=== PATIENT | male | born 1970 | race Caucasian/White ===

== ENCOUNTER 2016-07-06 06:31 | Observation (INO) | payer OTHER ==
--- NOTE | ~2016-07-06 | HP ---
Unit #: [id number] #: [id number] Patient: ALYSHA CHUNG [id number] [address] [place], [place] [address] [id number] I MR#: [id number] NAME: ALYSHA CHUNG ROOM: 69401 Age: 46 Sex: M Admission Date: 07/06/2016 : 1970 Attending Physician: Calvin Faust M.D. Primary Care Physician: No Primary Care Physician HISTORY AND PHYSICAL HISTORY OF PRESENT ILLNESS This is a 46-year-old white male with a known history of diabetes mellitus type 2, hyperlipidemia, hypertension, known coronary artery disease, had a heart catheterization back in [address] Faust that showed a 70% to 75% stenosis of the ostial LAD, a 99% stenosis in the first diagonal of the circumflex, and 75% in the proximal and the mid RCA. At that time, the recommendation by Dr. Faust was to go see a cardiothoracic surgeon for possible bypass and/or treat medically and, if he didn't have any chest pain, would hold off on any angioplasty or bypass. The patient has not seen a district manager postal service or a surgeon since that time. 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 The patient had a bronchoscopy by Dr. Johnson. It was not thought that there was any malignancy. He was on INH for six months. The patient says he ran out of all of his medications about two months ago including his diabetic medications. He says about the last three to four days has been having persistent frontal headache that radiates down to his face including the jaws and the neck. He started this morning. He has some sharp, pushing pressure on his right anterior chest wall. He says the chest pain is worse with taking in a deep breath. He denies any nausea, vomiting or diarrhea. He denies any increased shortness of breath, no palpitations, dizziness, presyncope or syncope. Denies any paroxysmal nocturnal dyspnea or orthopnea. The patient came into the hospital for further evaluation and management. In the emergency room, blood pressure was 150/81, heart rate was 73, respirations 16, temperature was 98.2, O2 sat was 100% on room air. His EKG shows sinus rhythm, early repolarization, nothing acute. His initial cardiac enzymes were negative. The patient's blood glucose was found to be 363. His creatinine is 1.0. The patient's WBCs are 12.6, his hemoglobin 16.3, platelets are 210. The patient was given aspirin 325. The patient will be admitted for further evaluation and workup. PAST MEDICAL HISTORY 1. Cardiac cath done here at [facility] by Dr. Faust 09/2011, revealed LVEF of 60%, 70% to 75% ostial LAD stenosis, 99% stenosis in the first diagonal of the circumflex, 75% stenosis in the proximal RCA, and 75% in the mid RCA. 2. Diabetes mellitus type 2. 3. Hyperlipidemia. 4. Diagnosed with possible TB 07/2015, was on INH therapy for six months. 5. Peripheral neuropathy. 6. Quit smoking two years ago. Unit #: [id number] #: [id number] Patient: ALYSHA CHUNG 7. Non-compliancy with medications. PAST SURGICAL HISTORY None. HOME MEDICATIONS Currently not taking anything. He ran out about two months ago. Looking back on previous medications from last year, the patient was on: 1. Coreg 3.125 mg p.o. twice daily. 2. Aspirin 81 mg p.o. daily. 3. Levemir 25 units subcu in the evening. 4. He also states he has been taking metformin but has been out of that for two months. ALLERGIES Codeine causes a rash. REVIEW OF SYSTEMS CONSTITUTIONAL: Denies fever, chills. No recent weight gain or weight loss. HEENT: Complains of a headache. No dizziness, no visual or hearing changes. No lymphadenopathy or thyromegaly. No difficulty swallowing. CARDIOVASCULAR: Chest pain present. Denies palpitations. Denies increased lower extremity edema. PULMONARY: Denies shortness of breath, denies paroxysmal nocturnal dyspnea or orthopnea. GI: Denies nausea, vomiting or diarrhea or abdominal pain. NEUROLOGICAL: No focal weakness. PHYSICAL EXAMINATION GENERAL: On exam, Mr. Chung is a 46-year-old white male in no acute respiratory distress. He is awake, alert and oriented. VITAL SIGNS: Blood pressure is 132/87, heart rate 72, respirations 16, temperature 98.6, O2 sats 96% on room air. NECK: Trachea midline. No thyromegaly or lymphadenopathy. Normal carotid upstrokes. No jugular venous distention. HEART: S1, S2. Regular rate and rhythm. No clicks, murmurs or rubs. LUNGS: Diminished, otherwise clear. ABDOMEN: Soft, nontender. Positive bowel sounds present. EXTREMITIES: Pedal pulses are palpable. No pedal edema. DIAGNOSTIC STUDIES LABORATORY: Glucose is 363, BUN 15, creatinine 1.0, eGFR is 91.1, potassium 4.6, sodium 134, chloride is 99, CO2 27, calcium is 8.9, total protein 7.0, albumin 3.9, bili total 0.7, AST 13, ALT 18, alkaline phos. 65. INR is 1.0, WBC 12.6, hemoglobin is 16.3 with hematocrit 49.0 and platelets 210. IMAGING: Chest x-ray shows nothing acute. CARDIOVASCULAR: EKG shows normal sinus rhythm, early repolarization. Ventricular rate 73 beats/minute, poor R wave progression. Left atrial abnormality. IMPRESSION 1. Chest pain, history of coronary artery disease: See details of heart catheterization in Past Medical History. 2. Poorly controlled diabetes mellitus type 2. Unit #: [id number] #: [id number] Patient: ALYSHA CHUNG 3. Hyperlipidemia. 4. Hyperlipidemia. 5. Peripheral neuropathy. 6. Non-compliancy with medications. PLAN 1. Cardiac enzymes so far are negative. EKG does not show anything acute. With patient's poorly controlled diabetes mellitus and his symptoms, Dr. Faust feels that since he has known coronary artery disease, moderate to severe. Was pretty significant back in 2011 that he needs further ischemic heart disease workup by performing a heart catheterization. Discussed with patient risks and benefits including risk of bleeding, myocardial infarction, stroke and even . 2. Will obtain a fasting profile to evaluate. 3. The patient will be started on normal saline at 125 mL/hour before the cath. 4. The patient will receive Lipitor 80 mg p.o. stat. 5. The patient will be, after his heart catheterization, started on a beta althea in addition to aspirin for regimen. 6. Dr. Faust had a long discussion with the patient about compliancy with his medication and his description of progression of diseases of his coronary artery disease and his diabetes mellitus as they are poorly controlled. 7. Will have Dr. James to come and manage his poorly controlled diabetes mellitus. Will order a hemoglobin A1c. 8. On exam, there are no signs or symptoms of acute congestive heart failure. 9. Will get an LVEF on the heart catheterization today. 10. Further recommendations pending with Dr. Faust. Dictated by Xi Dennis A.P.R.N. for Noemy Ellis/ike TD: 07/06/2016 11:25 JOB #: [id number] HISTORY AND PHYSICAL Page 1 of 1 X Xi Dennis APRN HISTORY AND PHYSICAL
--- NOTE | ~2016-07-06 | CO ---
Unit #: [id number] #: [id number] Patient: ALYSHA JONES [id number] [address] [address] [id number] I MR#: [id number] NAME: ALYSHA JONES ROOM: 573 Age: 46 Sex: M Admission Date: 07/06/2016 : 1970 Attending Physician: Calvin Faust M.D. Consultation Date: 07/06/2016 CONSULTATION REPORT HISTORY OF PRESENT ILLNESS This is a 46-year-old male with history of type 2 diabetes mellitus, coronary artery disease, hypertension, hyperlipidemia, poor compliance, who has been admitted with chest pain. He had status post cardiac cath done today with Dr. Faust. On his admission, he had a blood sugars running very high was 363. He last was in the hospital in 2011 and his A1c was about 12%. On this visit, his A1c is not available. Note, the patient has not been taking any of his medications. PAST MEDICAL HISTORY Please see HPI. PAST SURGICAL HISTORY None. HOME MEDICATIONS Not taking any at home, supposed to be on Coreg, aspirin, Levemir 25 units in the evening, supposed to be taking metformin, but he stopped everything. ALLERGIES Codeine. REVIEW OF SYSTEMS 12-point review of system is completed. Declines any nausea, vomiting, abdominal pain, urgency, frequency, dysuria. No polyuria. No cough, sputum, or shortness of air. Does report to have some headache and neck pain and chest discomfort. No focal deficits. Rest of the review of system is unremarkable. PHYSICAL EXAMINATION GENERAL: He is awake, alert, oriented to time, place, and person. VITAL SIGNS: Stable. Afebrile. Temperature 98.9, pulse 69, respirations 14, blood pressure 107/62. HEENT: EOMI. Pupils equally reactive to light. NECK: Supple. No thyromegaly noted. CHEST: Good air entry. CVS: Regular rhythm. No murmurs. ABDOMEN: Soft and nontender. Bowel sounds positive. EXTREMITIES: No edema or ulcers are noted. DIAGNOSTIC STUDIES LABORATORY RESULTS: Reviewed. ASSESSMENT Unit #: [id number] #: [id number] Patient: ALYSHA JONES 1. Type 2 diabetes mellitus, poorly controlled. 2. Coronary artery disease, status post cath. 3. Hyperlipidemia. PLAN I had a very lengthy discussion with the patient about need for compliance with medicine and the diet. I am going to start the patient on 70/30 NovoLog mix 25 units subcu b.i.d. and start metformin 750 mg b.i.d. or 48 to 72 hours later since the patient had a cardiac cath done. Discussed with the patient's complication of diabetes mellitus and cardiovascular including diabetic retinopathy, blindness, amputations, and renal failure. Thanks again for consultation. Dictated by... Noemy Malcolm/alfredo TD: 07/07/2016 02:38 JOB #: [id number] CONSULTATION REPORT Page 1 of 1 X Chapin James MD X CONSULTATION REPORT
--- NOTE | ~2016-07-06 | CR72 ---
[facility] A Service of [facility] RADIOLOGY TEXT RESULTS PATIENT: ALYSHA JONES [facility] 573-01 : [birth year] UNIT #: [id number] AGE: [address]: Calvin Faust MD SEX: M ORDER DR: [id number] [facility] [address] [place], [place] [address] [id number] MR#: [id number] Acc #: [id number] NAME: ALYSHA JONES : 1970 SEX: M STUDY DATE/TIME: 07/06/2016 7:23 UNIT: [facility]ONOR[facility] ROOM: STUDY DESCRIPTION: CR Chest Single View Portable Attending Physician: Alin Morales M.D. Ordering Physician: Alin Morales M.D. Primary Care Physician: No Primary Care Physician MEDICAL IMAGING REPORT This report is preliminary unless electronic signature is present EXAM Portable chest 07/06/2016 0723 COMPARISON 04/16/2015 HISTORY Chest pain since this morning. FINDINGS A single AP portable view of the chest shows both lungs to be clear. The heart is normal in size. The mediastinal contour is normal. No significant bone abnormalities are seen. IMPRESSION Normal portable chest. Dictated by... Gary Rapp M.D. THIS IS AN ELECTRONICALLY VERIFIED REPORT Gary Rapp M.D. at 07/06/2016 1:47 PM TEV/tye TD: 07/06/2016 08:04 JOB #: [id number] MEDICAL IMAGING REPORT Page 1 of 1 COPY
--- NOTE | ~2016-07-06 | EKG ---
PATIENT: ALYSHA JONES UNIT #: [id number] Ventricular Rate: 73 BPM Atrial Rate: 73 BPM P-R Interval: 144 ms QRS Duration: 106 ms Q-T Interval: 376 ms QTC Calculation(Bezet): 414 ms P [place]: 71 degrees Calculated R [place]: 67 degrees Calculated T [place]: 52 degrees Diagnosis Line: Normal sinus rhythm Diagnosis Line: Early repolarization Diagnosis Line: Normal ECG Diagnosis Line: When compared with ECG of 26-SEP-2011 10:28, Diagnosis Line: No significant change was found Diagnosis Line: Confirmed by TALISHA BOURNE MD ([id number]) on 07/06/2016 Diagnosis Line: 6:07:43 PM INTERPRETING MD: TAYLA DELGADILLO
[~2016-07-06 06:31] MED LIST: ALBUTEROL17 GM IN; ASPIRIN81 M1 PO; BACTROBAN22 GM TP; BENZONATATE PO; CLEOCIN HCL300 M1 PO; CLEOCIN150 M1 PO; COREG3.125 MG PO; COREG6.25 MG PO; CRESTOR PO; FLORASTOR250 M1 PO; GLUCOPHAGE500 M1 PO; GLUCOPHAGE500 MG PO; HUMALOG MI100 UNIT/2 SQ; IBUPROFEN800 MG PO; ISONIAZID300 MG PO; KEFLEX500 MG PO; LEVAQUIN750 M1 PO; LEVAQUIN750 MG PO; LEVEMIR100 UNITS/ SUBQ; LISINOPRIL5 MG PO; METFORMIN; METFORMIN HCL500 M1 PO; METFORMIN PO; NITROSTAT0.4 MG SL; NO MEDICATIONS; PEN-VEE K PO; PEPCID AC20 M2 PO; PLAVIX PO; PREDNISONE10 MG PO; PYRIDOXINE HCL50 M1 PO; TYLENOL325 M1 PO
[2016-07-06 07:55] LABS: POC - CKMB <1.0 ng/mL (0.0-7.9); POC - TROPONIN <0.05 ng/mL (<=0.05)
[2016-07-06 08:24] LABS: BASOPHIL# 0.1 X10e3 (0-0.3); BASOPHIL% 0.5 % (0-2.5); EOSINOPHIL# 0.2 X10e3 (0-0.7); HEMOGLOBIN 16.3 gm/dL (13.0-16.0); LYMPHOCYTE# 1.9 X10e3 (1.0-3.5); LYMPHOCYTE% 15.3 % (17.0-45.0); MEAN CELL VOLUME 85.7 FL (83-96); MEAN CORPUSCULAR HEMOGLOBIN 28.5 PG (28-34); MEAN CORPUSCULAR HGB CONC 33.2 g/dL (30-36); MEAN PLATELET VOLUME 10.1 FL (6.5-11.5); MONOCYTE# 1.2 X10e3 (0-1.0); MONOCYTE% 9.5 % (3.0-12.0); NEUTROPHIL# 9.2 X10e3 (1.5-7.1); NEUTROPHIL% 72.7 % (40-75); PLATELET COUNT 210 X10e3 (140-420); RED BLOOD COUNT 5.72 X10e (3.90-5.60); RED CELL DISTRIBUTION WIDTH 13.3 % (11.0-15.5); WHITE BLOOD COUNT 12.6 X10e3 (4.0-10.5)
[2016-07-06 08:30] LABS: DIFF IND NO
[2016-07-06 08:38] LABS: PARTIAL THROMBOPLASTIN TIME 26.7 SECONDS (23.5-31.3); PROTHROMBIN TIME (PATIENT) 10.1 SECONDS (9.6-11.5)
[2016-07-06 08:55] LABS: ALBUMIN SERUM 3.9 g/dL (3.5-5.0); BILIRUBIN, DIRECT 0.1 mg/dL (0.0-0.2); BILIRUBIN,INDIRECT 0.6 mg/dL (0.0-0.9); BILIRUBIN,TOTAL 0.7 mg/dL (0.2-2.0); CALCIUM SERUM 8.9 mg/dL (8.4-10.2); GLOM FILT RATE Estimated 91.1 mL/min (>60); POTASSIUM 4.6 mmol/L (3.5-5.1)
[2016-07-06 10:16] LABS: POC - CKMB <1.0 ng/mL (0.0-7.9); POC - TROPONIN <0.05 ng/mL (<=0.05)
[2016-07-06] MEDS ORDERED: NO MEDICATIONS (11:00)
[2016-07-06 14:06] LABS: CHOLESTEROL 141 mg/dL (0-200); HDL CHOLESTEROL 41 mg/dL (29-75); LDL CHOLESTEROL 85 mg/dL (-130); LDL/HDL RATIO 2 RATIO (0-4); TRIGLYCERIDES 77 mg/dL (10-160)
[2016-07-06] MEDS ORDERED: BAYER CHEWABLE81 MG PO (20:08)
[2016-07-06] MEDS ORDERED: LISINOPRIL10 MG PO (20:10)
[2016-07-06] MEDS ORDERED: SIMVASTATIN40 MG PO (20:11)
[2016-07-06] MEDS ORDERED: METFORMIN HCL750 MG PO (20:12)
[2016-07-06] MEDS ORDERED: NOVOLOG7030 SUBQ (20:16)
== END 2016-07-06 20:54 | disposition home or self-care (01) | DRG 303 ==
LOC: CED 06:31 → CEDOF 09:54 → C5C 12:29 → CEDOF 12:29 → C5C 20:54
PROVIDERS: Emergency Medicine; Internal Medicine Cardiovascular Disease
DX: I25.118 Atherosclerotic heart disease of native coronary artery with other forms of angina pectoris (principal); E11.65 Type 2 diabetes mellitus with hyperglycemia; E11.42 Type 2 diabetes mellitus with diabetic polyneuropathy; Z79.4 Long term (current) use of insulin; Z79.84 Long term (current) use of oral hypoglycemic drugs; I10 Essential (primary) hypertension; E78.5 Hyperlipidemia, unspecified; Z87.891 Personal history of nicotine dependence; Z91.14 Patient's other noncompliance with medication regimen; Z88.5 Allergy status to narcotic agent
CPT/HCPCS: 36415; 71010; 80048; 80061; 80076; 82553; 82947; 83036; 84443; 84484; 85025; 85610; 85730; 93005; 99285; C1769; C1887; C1894; G0378; J1644; J2250; J3010

== ENCOUNTER 2016-09-07 11:13 | Inpatient (IN) | payer OTHER ==
[~2016-09-07] VITALS: Ht 190.5 cm; Wt 100.6 kg
--- NOTE | ~2016-09-07 | DS ---
Unit #: [id number] #: [id number] Patient: ALYSHA CHUNG JR [id number] [address] [address] [id number] I MR#: [id number] NAME: ALYSHA CHUNG JR ROOM: 242 Age: 46 Sex: M Admission Date: 09/07/2016 : 1970 Discharge Date: 09/13/2016 Attending Physician: Laurel Acevedo M.D. Primary Care Physician: No Primary Care Physician DISCHARGE SUMMARY PRINCIPAL DIAGNOSES 1. Right lower lobe pulmonary abscess. 2. Right flank pain musculoskeletal in origin. 3. Diabetes mellitus type 2, non-insulin requiring and uncontrolled with hemoglobin A1c of 13.1 in June of 2016. 4. Coronary artery disease. 5. Hypertension. 6. Hyperlipidemia. 7. Mild protein malnutrition. 8. Mild transaminitis. 9. Positive QuantiFERON of undetermined significance. 10. Obesity. 11. Poor dentition. CONSULTANTS Dr. Johnson, Pulmonology. Dr. Candelario, Cardiothoracic Surgery. Dr. Nichols, Infectious Disease. PROCEDURES 1. Bronchoscopy on September 12, 2016, without findings of endobronchial lesion. Initial gram stains are negative for organisms. 2. Chest x-ray September 07, 2016, with ill-defined density in the right infrahilar region. 3. CT scan of the abdomen and pelvis without contrast September 07, 2016, with no acute findings in the abdomen or pelvis. There is a thick-walled cavitary lesion in the right lower lobe measuring 6.2 x 4.2 cm. Left lung is clear. 4. CT of the chest without contrast in September 07, 2016, again with findings of right lower lobe cavitary mass. Small right pleural effusion. 5. CT of the chest with contrast September 10, 2016, with normal superior vena cava, thick-walled cavitary lesion in the posterior right lung base is slightly smaller compared to CT scan on September 07. 6. Chest x-ray, September 12, 2016, again with cavitary lesion in the right lower lobe. CLINICAL HISTORY AND HOSPITAL COURSE Mr. Chung is a 46-year-old male who presents to the emergency department with complaints of abdominal pain and cough. The patient has a history of right lower lobe cavitary mass diagnosed in July of 2016 with concerns of TB at that time secondary to a positive QuantiFERON test. Patient was discharged on INH, vitamin B6 but only took the medications for one month. He returns with abdominal pain that appeared primarily Unit #: [id number] #: [id number] Patient: ALYSHA CHUNG JR based on history and examination. CT scan of the abdomen and pelvis is unremarkable. The same CT scan revealed persistent cavitary mass and the patient was admitted. The patient was placed on empiric broad-spectrum antibiotics and Pulmonology, Cardiothoracic Surgery and ID were consulted. Antibiotics were adjusted by ID, essentially to Zosyn and Zyvox and based upon repeat CT scan, the cavitary mass appeared to be improving. The patient underwent bronchoscopy yesterday but initial Gram stains are negative. Patient did have a mild leukocytosis upon presentation but this resolved by the second day of hospitalization and has not recurred. No associated fever. At this point, causative organism is unclear. We are going to complete a 28-day course of antibiotics as outlined below, and the patient will require close follow up. The patient also has significantly uncontrolled diabetes. When he was discharged from this facility in June, he was placed on some sort of insulin therapy which was too expensive. Unfortunately, I do not have a record of which insulin was prescribed. I am going to check costs of insulins downstairs, i.e., Levemir, NovoLog and if too expensive will change him to NPH. Anticipate discharge home later today. DISCHARGE CONDITION Stable. DISCHARGE STATUS Discharged to home. DISCHARGE MEDICATIONS Will be dictated as an addendum. DISCHARGE INSTRUCTIONS The patient has been instructed regarding a diabetic diet. He can obtain Accu-Cheks at least twice daily at home, once fasting and one meal 2 hours post-prandial to monitor insulin dosing. He can increase activity as tolerated. FOLLOW UP The patient will follow up with Dr. Johnson per his instructions, will need repeat CT scan done as an outpatient to ensure improvement in pulmonary abscess. He needs CBC and BMP every other week while on antibiotics. The patient is to follow-up with his primary care physician Dr. Foy in 2 weeks. Time spent on discharge today 36 minutes. Dictated by... Laurel Acevedo M.D. HA/pawan TD: 09/13/2016 19:40 JOB #: [id number] Unit #: [id number] #: [id number] Patient: ALYSHA CHUNG JR DISCHARGE SUMMARY Page 1 of 1 X Laurel Acevedo MD X DISCHARGE SUMMARY
--- NOTE | ~2016-09-07 | HP ---
Unit #: [id number] #: [id number] Patient: ALYSHA CHUNG [id number] [address] [address] [id number] MR#: [id number] NAME: ALYSHA CHUNG ROOM: Age: 46 Sex: M Admission Date: 09/07/2016 : 1970 Attending Physician: Angeles Jacobs M.D. HISTORY AND PHYSICAL PRIMARY CARE PROVIDER Dr. Foy CHIEF COMPLAINT Right flank pain. HISTORY OF PRESENT ILLNESS Mr. Chung is a 46-year-old male with a questionable history of TB with known right lower lobe pulmonary abscess diagnosed in July 2015. The patient presented to this emergency department with a four-day history of right flank and abdominal pain described as sharp and stabbing more so with coughing or movement. He does endorse a mild amount of constipation but no melena, no hematochezia, no nausea or vomiting, no difficulty eating, no chest pain, no hematuria, no dysuria, and no change in urinary frequency. He states that he had similar pain when he was diagnosed with pulmonary abscess in 2016. He states he has had a cough for the last four days but denies any fever, denies any malaise, and denies any recent weight loss or night sweats. He denies any sick contacts. Cough is intermittently productive but generally not so. In the emergency department upon presentation, patient's vital signs were all stable and he was afebrile. Oxygen saturation was 99% on room air. Lab work revealed an elevated white blood cell count of 15,000 in addition to a significantly elevated glucose of 481. A CT scan of the abdomen and pelvis was done revealing a persistent right lower lobe cavitary pneumonia but not significantly increased in size since July 2015. Patient is being admitted due to this persistent abscess. I will note, per record review, patient was instructed to take INH 300 mg daily for six months, in addition to vitamin B6 daily. Patient tells me he completed treatment, but he cannot tell me when. He does inform me that he filled the INH at [facility]. I contacted the patient's pharmacy today and am told that he has not filled any medication since July 2015. It appears there might have been attempt to fill in October 2015, but it was never picked up. PAST MEDICAL HISTORY 1. 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 Again, patient was to complete six months of INH and vitamin B6, but it is unclear whether this was done or not. 2. Coronary artery disease. Patient underwent heart cath in June 2016 here with what appears to be a RCA lesion of 75%, an LAD lesion of perhaps 75%, and a circumflex lesion of 50%. However, this is per patient report, and I cannot identify the cath report itself. The plan was medical management. Unit #: [id number] #: [id number] Patient: ALYSHA HCUNG JR 3. Diabetes mellitus type 2, uncontrolled. Patient's hemoglobin A1c in June 2016 was 13.1. 4. Hypertension. 5. Hyperlipidemia. 6. Diabetic peripheral neuropathy. 7. History of medical noncompliance. PAST SURGICAL HISTORY Recent heart cath (1) is otherwise negative. HOME MEDICATIONS 1. Metformin 750 mg b.i.d. 2. Zestril 10 mg daily. 3. Zocor 40 mg daily. Again, completion of INH is unclear to me at this time. ALLERGIES Codeine causes a rash. FAMILY HISTORY Diabetes, hypertension, and coronary artery disease. SOCIAL HISTORY Patient does have a 10 pack-year history of tobacco use but quit five years ago. He drinks alcohol only socially. He denies any illicit drug use. 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 REVIEW OF SYSTEMS Again, denies any fevers or chills, denies any vision change, denies any sore throat, denies any weight change or any night sweats. He denies any upper chest pain, palpitations, orthopnea, or PND. He does endorse cough that is occasionally productive and this right-sided abdominal pain. No new tingling, numbness, or weakness of extremities. He does intermittently have joint pain diffusely. He denies any recent rashes. Otherwise, a 10-point review of systems was reviewed and is negative. PHYSICAL EXAMINATION VITAL SIGNS: Temperature 98.6, blood pressure 125/79, pulse rate 68, respiratory rate 16, and oxygen saturation is 100% on room air. GENERAL: Patient is awake and alert. He is oriented x3. HEENT: Pupils equally round and reactive to light bilaterally. Anicteric sclerae. No conjunctival pallor. Oropharynx with moist mucous membranes. No erythema or exudate. NECK: Supple. No lymphadenopathy, no thyromegaly, and no JVD. HEART: Regular rate and rhythm without murmur, rub, or gallop. LUNGS: Essentially clear bilaterally with occasional rhonchi in the right lower lobe. ABDOMEN: Soft. It is nondistended. It is mildly tender primarily over the right flank but without any guarding or rebound. Positive bowel sounds. No appreciable hepatosplenomegaly. EXTREMITIES: No cyanosis, clubbing, or edema. Pedal pulses 2/4. SKIN: Warm and moist without rash. NEUROLOGIC: Cranial nerves II-XII are intact. Sensation, strength, and deep tendon reflexes are grossly normal. Gait was not assessed. MUSCULOSKELETAL: No significant joint abnormalities noted on exam. PSYCHIATRIC: Alert and oriented x3. No suicidal or homicidal ideation. I will admit, he is somewhat vague with history. Unit #: [id number] #: [id number] Patient: ALYSHA CHUNG JR DIAGNOSTIC STUDIES LABORATORY: White blood cell count of 15, hemoglobin 15.4, and platelet count of 193,000. Differential reveals 78% neutrophils and 13% lymphocytes. Urinalysis reveals greater than 1000 glucose but is otherwise negative. CMP reveals a sodium of 131, potassium 4.1, chloride 97, bicarb 26, BUN 16, creatinine 1, and glucose of 481. LFTs are all normal. Albumin is mildly low at 3.5. Lipase is also normal. BNP is 74. IMAGING: Chest x-ray done in the emergency department good inflation of the lungs. There is an ill-defined density in the right infrahilar region noted. CT scan of the abdomen and pelvis without contrast done in the emergency department reveals a thick-walled cavitary lesion measuring 6.2 x 4.2 cm noted. There is posterior pleural fluid or reactive pleural thickening associated with this. It appears similar in size to studies from July 2015. Terminal ileum and appendix were normal. Otherwise, there were no acute findings in the abdomen or pelvis. I will note, record review from last year after patient underwent bronc was negative for malignancy, AFB, and fungal infection at that time. ASSESSMENT 1. Persistent right lower lobe pulmonary abscess with questionable completion of INH therapy and positive QuantiFERON Gold testing in July 2015. 2. Right flank pain that is likely muscular in origin. 3. Diabetes mellitus type 2, uncontrolled, with associated peripheral neuropathy. Hemoglobin A1c 13.1. 4. Coronary artery disease, status post recent catheterization with medical management. 5. Hypertension. 6. Hyperlipidemia. PLAN 1. I will admit patient to inpatient status. 2. Source of patient's pulmonary abscess is unclear. While indeed this is very possibly TB, perhaps there is another etiology such as an anaerobe or a fungal infection. I am going to begin empiric Merrem only, and I will ask Dr. Fonseca to see the patient. I am also going to ask Dr. Johnson who evaluated the patient last year to see him again, and I am also going to ask Dr. Candelario to evaluate the patient given this pulmonary abscess may require surgical intervention, though that is unclear to me at this time. Will obtain sputum gram stain and cultures, repeat a serum QuantiFERON, and obtain blood cultures as well. I will also get a CT scan of the chest for further imaging of this pulmonary abscess. I will also place the patient in a negative pressure room pending results of testing. 3. Pain control of right flank pain with Toradol and morphine on a p.r.n. basis. I will also place the patient on Protonix. 4. Obtain copy of most recent 2D echo and heart cath report from June 2016. 5. I am going to ask patient's pharmacy to fax a list of all meds that have been filled since February 2015 to ensure that indeed this medication has or has not been filled. 6. Accu-Cheks a.c. and at bedtime with associated CCD, heart-healthy diet. I am going to place the patient on scheduled NovoLog and Levemir. His blood sugar is much too uncontrolled to be on metformin only. Unit #: [id number] #: [id number] Patient: ALYSHA CHUNG JR 7. Continue home medications for hypertension and hyperlipidemia. 8. DVT prophylaxis with Lovenox. Time spent on admission today 55 minutes. Dictated by Laurel Acevedo M.D. Rhonda TD: 09/07/2016 20:59 JOB #: [id number] HISTORY AND PHYSICAL Page 1 of 1 X Laurel Acevedo MD X HISTORY AND PHYSICAL
--- NOTE | ~2016-09-07 | CT55 ---
[facility] A Service of [facility] RADIOLOGY TEXT RESULTS PATIENT: ALYSHA JONES JR LOCATION: [facility] 315-01 : [birth year] UNIT #: [id number] AGE: [address]: Laurel Acevedo MD SEX: M ORDER DR: [id number] [facility] [address] [facility]. [place], [place] [address] [id number] I MR#: [id number] Acc #: [id number] NAME: ALYSHA JONES JR : 1970 SEX: M STUDY DATE/TIME: 09/10/2016 15:48 UNIT: C3A PCU ROOM: [facility] STUDY DESCRIPTION: CT Chest W Con Attending Physician: Laurel Acevedo M.D. Ordering Physician: Ed Doctor [id number] [facility] Primary Care Physician: Primary Care Physician No MEDICAL IMAGING REPORT This report is preliminary unless electronic signature is present EXAM CT chest without contrast, 09/10/2016 15:48 hours HISTORY 46-year-old man with pulmonary abscess, new onset angioedema of the face. Evaluate for SVC syndrome. Shortness of air for 5 days. COMPARISON Noncontrasted chest CT, 09/07/[address] images were obtained from the thoracic inlet through the adrenal glands. Sagittal and coronal reconstructions were performed. Contrast was Isovue-370, 70 mL IV. Total exam DLP 71 7 mGy-cm. This CT exam was performed with one or more of the following radiation dose reduction techniques: automatic exposure control, adjustment of mA and/or kV according to patient size, and iterative reconstruction. FINDINGS Images through the thoracic inlet demonstrate normal thyroid gland. There is normal opacification of the internal carotid arteries and the jugular veins. Contrast was administered in the right arm. Right subclavian vein and SVC are well opacified with contrast. There are nondilated or occluded. The aorta, mediastinal and hilar structures are normal. There are small less than 1.0 cm right hilar nodes which are likely reactive. There is no pericardial fluid or left pleural effusion. There is a stable small dependent right pleural effusion adjacent to the right lower lobe cavitary lesion. The lesion measures 5.7 cm transversely where it previously measured 7.2 cm. The wall thickening has improved slightly since 09/07/2016. Overall this appears improved and does not appear increased. [facility] A Service of [facility] RADIOLOGY TEXT RESULTS PATIENT: ALYSHA JONES JR LOCATION: A 315-01 : 74 UNIT #: [id number] AGE: [address]: Laurel Acevedo MD SEX: M ORDER DR: The lungs are otherwise clear. Limited views through the upper abdomen are negative. IMPRESSION 1. The superior vena cava is normal in caliber and normally opacified. There is some reflux of contrast into the right and left internal jugular veins which appear patent and normal in caliber. There is no evidence of SVC syndrome. 2. The thick-walled cavitary lesion in the posterior right lung base is slightly smaller and slightly less thick-walled than on 09/07/2016. There is still a small adjacent dependent pleural effusion. The lungs are otherwise clear. Dictated by... Anitha Sousa M.D. THIS IS AN ELECTRONICALLY VERIFIED REPORT Anitha Sousa M.D. at 09/11/2016 8:41 AM Celena TD: 09/11/2016 08:15 JOB #: [id number] MEDICAL IMAGING REPORT Page 1 of 1 COPY
--- NOTE | ~2016-09-07 | A ---
[facility] Nutrition Therapy DATE: 09/12/16 Patient: ALYSHA JONES JR Physician: GABRIELLE Address: [address] Room/Bed: [address] [place] [address], Zip: [place] [address] Admit Date: 09/07/16 Date of : [birth year] Height: 6 3 Weight: 221 100.6 NUTRITIONAL ASSESSMENT: REASON: Consult for diabetic diet education Admitting dx: 46 y/o male admitted with R flank pain PMH: T2DM, PNA, CAD, HTN, HLD, neuropathy, medical non-compliance Anthropometrics: Ht: 75", Wt: 90.7-100.6 kg, BMI: 27 (overweight; based on admission wt) Labs: glucose 209, POC 184-214, A1C 13.1 (June 2014) Meds: low SSI, levemir Assessment: Chart reviewed, events noted. Consult received for diabetic diet education however pt is currently NPO for a bronch today, is roaming the halls and about to go outside. He is antsy and hungry and does not wish to talk about food at this time. RD left the following diet education handouts in the patients room and asked him to review them later today once he has eaten: 1800 calorie/day 5-day sample meal plan, diabetes label reading tips and Type [address] office number. The pt was quite sure he would still be admitted tomorrow, so I informed him we would return tomorrow to verbally review the materials. Nursing informed of this. See recs below. Dx: 1) Food and nutrition related knowledge deficit r/t no prior diet education AEB RD consult. 2) Altered nutrition related lab values r/t hx T2DM AEB glucose POC 184-214, A1C 13.1. Intervention: Diet education Monitoring, Evaluation and Goals: 1. Understanding and implementation of diabetic diet education. 2. Reduction in A1C, glucose WNL. Recommendations: 1. Once able resume consistent carb/healthy heart diet. 2. RD left diabetic diet education materials with contact info in his room as described above. Will follow-up to verbally review with him prior to discharge. 3. Optimize insulin regimen to promote adequate blood glucose control. [facility] Nutrition Therapy DATE: 09/12/16 Patient: ALYSHA JONES JR Physician: GABRIELLE Address: [address] Room/Bed: [address] [place] [address], [facility], Zip: [place] [address] Admit Date: 09/07/16 Date of : [birth year] Height: 6 3 Weight: 221 100.6 Respectfully, Terri Benites RD, LD Food and Nutritional Services [facility] cc: client file
--- NOTE | ~2016-09-07 | CO ---
Unit #: [id number] #: [id number] Patient: ALYSHA CHUNG JR [id number] [address] [place], [place] [address] [id number] I MR#: [id number] NAME: ALYSHA CHUNG JR ROOM: 315 Age: 46 Sex: M Admission Date: 09/07/2016 : 1970 Attending Physician: Laurel Acevedo M.D. Consultation Date: 09/08/2016 CONSULTATION REPORT REASON FOR CONSULTATION Abnormal CAT scan. HISTORY OF PRESENT ILLNESS A 46-year-old gentleman, who was seen in 07/2015 and had a cavitary right lower lobe lesion. He underwent bronchoscopy, which showed no endobronchial lesions. Specimens were unrewarding including path negative and AFB negative. He did have a positive QuantiFERON. At discharge, he was treated with clindamycin orally and INH, but there was some question whether or not he took those medications. We are trying to obtain formal documentation from the pharmacy. He presented to the hospital with back, abdominal, and side pain. This came on Sunday and has improved. Prior to that, he had no symptoms whatsoever. No shortness of breath, sputum production, hemoptysis, hematuria, fever, chills, weight loss, night sweats, etc. PAST MEDICAL HISTORY Remarkable for history of cavitary lung lesion, positive QuantiFERON Gold with questionable compliance with medical therapy, coronary artery disease, diabetes, hypertension, hyperlipidemia, peripheral neuropathy, and history of medical noncompliance. MEDICATIONS At home; metformin, Zestril, Zocor. ALLERGIES Codeine. SOCIAL HISTORY He quit smoking 5 years ago. He drinks alcohol only on rare occasion. 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 REVIEW OF SYSTEMS No chest pain, palpitations, abdominal pain, melena, hematochezia, hematemesis, hematuria, dysuria, focal weakness, paresthesias, leg pain, or swelling. Further review of systems as above or negative. PHYSICAL EXAMINATION GENERAL: Reveals a patient, who is afebrile. VITAL SIGNS: Pulse 61, respiratory rate is 18, blood pressure is 128/81, 6 feet 3 inches, 217 pounds. HEENT: Pupils equal, round, and reactive to light. Sclerae anicteric. Unit #: [id number] #: [id number] Patient: ALYSHA CHUNG JR Head atraumatic. NECK: Supple. No supraclavicular or cervical adenopathy appreciated. Mucous membranes moist. He has very poor dentition. CHEST: Decreased breath sounds. No wheeze, stridor, or consolidation. CARDIAC: Reveals regular rate and rhythm. ABDOMEN: Soft and nontender. No hepatomegaly or rebound. EXTREMITIES: Reveal no clubbing, cyanosis, or edema. No calf tenderness. SKIN: Warm and dry without rash or diaphoresis. NEUROLOGIC: Grossly intact. No focal motor or sensory deficits. DIAGNOSTIC STUDIES LABORATORY RESULTS: Blood sugar 266, BUN 21, creatinine is 1.0. CBC is normal. Urinalysis; glucosuria. No hematuria. Blood cultures performed and are pending. Sputum from bronchoscopy was just normal for path. No AFB, no fungal elements. AFBs were negative. TB culture negative. Fungal culture, light growth krissy. IMAGING STUDIES: CT scan; thick walled cavitary lesion right lower lobe. IMPRESSIONS Cavitary lesion fairly stable over one year, asymptomatic. Suspect pulmonary abscess particularly in the setting of poor dentition. Certainly, the differential includes AFB disease, fungal disease. Doubt vasculitis. Other medical problems listed above. PLAN ANCA, fungal serologies, galactomannan, beta-glucan will be checked. Thoracic surgery has been consulted for consideration of resection, therefore I will check bedside spirometry. I would suggest something in the form of Augmentin for 6 weeks; however if it is proven that he did truly did take his clindamycin, then this could be considered failed medical treatment and surgical resection could be considered. If ID suggest bronchoscopy, that could be performed on Sunday or as an outpatient. Thank you very much for allowing me to participate in the care of Mr. Chung. Dictated by... Sandeep Johnson M.D. MIGUEL/alfredo TD: 09/08/2016 13:12 JOB #: [id number] CC: Noemy Wiggins A.P.R.N. CONSULTATION REPORT Page 1 of 1 X Sandeep Johnson MD X CONSULTATION REPORT
--- NOTE | ~2016-09-07 | CR72 ---
[facility] A Service of [facility] RADIOLOGY TEXT RESULTS PATIENT: ALYSHA JONES JR LOCATION: [facility] : 74 UNIT #: [id number] AGE: [address]: Laurel Acevedo MD SEX: M ORDER DR: [id number] [place] [id number] [facility]. [place], [place] [address] [id number] MR#: [id number] Acc #: [id number] NAME: ALYSHA JONES : 1970 SEX: M STUDY DATE/TIME: 09/12/2016 5:45 UNIT: C3A PCU ROOM: [facility] STUDY DESCRIPTION: CR Chest Single View Portable Attending Physician: Laurel Acevedo M.D. Ordering Physician: Ping Baker A.P.R.N. Primary Care Physician: No Primary Care Physician MEDICAL IMAGING REPORT This report is preliminary unless electronic signature is present EXAM AP portable chest. DATE 09/12/2016 at 0545. HISTORY Cavitary lesion in the right lower lobe with cough and right flank pain. Symptoms began 5 days ago, 09/05/2016. Coronary artery disease. Hypertension. History of tuberculosis in 2016, noncompliant with medications. COMPARISON AP portable chest 09/07/2016. CT chest 09/07/2016. FINDINGS Cavitary lesion in superior segment right lower lobe is demonstrated to better advantage on previous chest CT. There is mild peripheral airspace disease in the right midlung. Left lung is clear. No pleural effusion. No pneumothorax. IMPRESSION 1. The patient's known cavitary lesion in the superior segment right lower lobe is demonstrated to better advantage on recent 09/07/2016 CT chest. 2. Development of mild peripheral airspace disease in the right midlung. Dictated by... Corina Sherwood M.D. THIS IS AN ELECTRONICALLY VERIFIED REPORT [facility] A Service of [facility] RADIOLOGY TEXT RESULTS PATIENT: ALYSHA JONES JR LOCATION: [facility] : 74 UNIT #: [id number] AGE: [address]: Laurel Acevedo MD SEX: M ORDER DR: Corina Sherwood M.D. at 09/12/2016 9:52 PM [facility]/terese TD: 09/12/2016 10:30 JOB #: [id number] MEDICAL IMAGING REPORT Page 1 of 1 COPY
--- NOTE | ~2016-09-07 | CO ---
Unit #: [id number] #: [id number] Patient: ALYSHA CHUNG JR [id number] [address] [address] [id number] I MR#: [id number] NAME: ALYSHA CHUNG JR ROOM: 315 Age: 46 Sex: M Admission Date: 09/07/2016 : 1970 Attending Physician: Laurel Acevedo M.D. Primary Care Physician: No Primary Care Physician CONSULTATION REPORT REASON FOR CONSULTATION Pulmonary abscess and possible TB. HISTORY OF PRESENT ILLNESS Mr. Chung is a 46-year-old pleasant male with a past medical history significant for cavitary right lower lobe pneumonia with possible TB and positive QuantiFERON Gold test in 2016, coronary artery disease, diabetes mellitus, hypertension, hyperlipidemia, diabetes, diabetic peripheral neuropathy, and history of medical noncompliance who arrived to the emergency department with the complaint of a four-day history of right flank and abdominal pain described as sharp as well as some congestion within his chest. He also complains of a cough, although denies any bloody secretions, complains of a yellowish-type of drainage. He denies any nausea, vomiting, or diarrhea. Denies any chest pain. As of history, he was admitted here in July 2015 for a pulmonary abscess for which he was instructed to take six months of INH as well as vitamin B6 daily. Although patient is a poor historian, he states that he thinks he stopped taking the medication around sometime last year. He did not have any followup appointments with a pulmonary doctor or with the TB clinic. During this time, he denies any type of bloody secretions. Denies any weight loss. Denies any contact with anybody sick. He currently lives in an apartment that he has lived in for about 13 years with his and children. CT of his chest showed an increased size of a cavitary mass in the right lower lobe and also an increased consolidation adjacent to the cavitary lesion, suspicion for pulmonary abscess, and a small right pleural effusion. CT abdomen and pelvis with no acute finding. Also seen again was the thickened wall cavitary lesion, possibly representing an atypical infection. He has been started on meropenem and we are now being consulted for antibiotic management. PAST MEDICAL HISTORY 1. Cavitary right lower lobe pneumonia. 2. Coronary artery disease. 3. Diabetes mellitus. 4. Hypertension. 5. Hyperlipidemia. 6. Diabetic peripheral neuropathy. 7. Noncompliance. PAST SURGICAL HISTORY Heart cath. MEDICATIONS Medications reviewed. Current antibiotics is meropenem. Unit #: [id number] #: [id number] Patient: ALYSHA CHUNG JR ALLERGIES No known antibiotic allergies. Allergy to codeine. FAMILY HISTORY Diabetes, hypertension, coronary artery disease. SOCIAL HISTORY The patient denies current tobacco use. He was a former smoker. Occasional social drinker. Denies any illicit drug use as well as IV drug use and he works in [employer], which he has worked at for about 12 years. Is with children. REVIEW OF SYSTEMS All negative except for those stated in HPI. He also denies any fevers, chills, night sweats, weight loss, bloody secretions, cough, chest pains, or any palpitations. PHYSICAL EXAMINATION VITAL SIGNS: Temperature 98.1, heart rate 60, respirations 18, blood pressure 126/76. GENERAL: Resting in bed, no complaints. CARDIOVASCULAR: Regular rate and rhythm. PULMONARY: Nonlabored. Clear to auscultation. Diminished in the bases. No cough. GASTROINTESTINAL: Soft, nontender. Positive bowel sounds. SKIN: Dry and intact. MUSCULOSKELETAL: Equal range of motion. NECK: Supple. DIAGNOSTIC STUDIES LABORATORY: Creatinine 1, sodium 131, chloride 97. Hematology: White blood cells 10.5, hematocrit 40.8, platelets 174,000. MICROBIOLOGY: Pending blood cultures. IMAGING: CT shows an increased size of cavitary mass in the right lower lobe. ASSESSMENT 1. Pulmonary cavitation, possible abscess. 2. Possible history of tuberculosis. 3. Abdominal pain. PLAN In reviewing patient's previous medical history, it appears that his workup from last year revealed a positive QuantiFERON test. At that time, it looks like AFB cultures were all negative. Unclear course of if patient had been taking medications previously. He said he did not have any followup appointments with TB clinic or with pulmonary group. At this point, will cover patient broadly for any type of any bacterial or atypical (1) for pulmonary abscess and continue meropenem. Will also add vancomycin as well as Levaquin. Most likely, patient will need either a bronchoscopy, drainage, or biopsy of lesion for better antibiotic guidance and management. At this point, it does not appear patient is at significant risk factors for any type of fungal infections. Workup from last year was negative for fungal workup and the patient does not appear to be immunocompromised. Will also check a sputum culture if unable to Unit #: [id number] #: [id number] Patient: ALYSHA CHUNG JR have any type of procedures. Will discuss with Dr. Fonseca as well who will see the patient today. At this point, he is clinically stable. Will recommend to continue in isolation pending workup. Will discuss plan with MD. Thank you again for the consultation and patient's care will be updated as seen. Dictated by... Dasha Nieto APRN for Noemy Wiggins TD: 09/08/2016 08:58 JOB #: [id number] CONSULTATION REPORT Page 1 of 1 X X CONSULTATION REPORT
--- NOTE | ~2016-09-07 | FU ---
[facility] Nutrition Therapy DATE: 09/13/16 Patient: ALYSHA JONESJR Physician: GABRIELLE Address: [address] Room/Bed: [address] [place] [address], [facility], Zip: [place] [address] Admit Date: 09/07/16 Date of : [birth year] Height: 6 3 Weight: 221 100.6 NUTRITION MONITORING/FOLLOW-UP: Reason: PT SEEN FOR DIET EDUCATION FOLLOW-UP RD REVIEWED WRITTEN TYPE 2 DM MNT, DM LABEL READING AND 1800 KCAL/5 DAY SAMPLE MEAL PLAN DIET EDUCATION. PT DEMONSTRATED UNDERSTANDING OF THE TOPIC. PT REPORTED NO DIET QUESTIONS AT THIS TIME. RD TO REMAIN AVAILABLE UPON REQUEST. RD OFFICE/WORK PHONE NUMBER LEFT ON WRITTEN DIET EDUCATION. RECOMMENDATIONS: 1. ENCOURAGE COMPLIANCE OF CURRENT DIET ORDER-CC 2. RE-CONSULT RD IF FURTHER DIET EDUCATION REQUESTED RD WILL F/U PER PROTOCOL Respectfully, JF العلي MS, RD, LD [facility] cc: client file
--- NOTE | ~2016-09-07 | CO ---
Unit #: [id number] #: [id number] Patient: ALYSHA CHUNG JR [id number] [facility] [address] [place], [place] [address] [id number] I MR#: [id number] NAME: ALYSHA CHUNG JR ROOM: 315 Age: 46 Sex: M Admission Date: 09/07/2016 : 1970 Attending Physician: Laurel Acevedo M.D. Primary Care Physician: No Primary Care Physician Requesting Physician: Laurel Acevedo M.D. CONSULTATION REPORT REASON FOR REFERRAL Possible lung abscess. HISTORY OF PRESENT ILLNESS Mr. Alysha Chung is a 46-year-old gentleman who presented to the emergency room with a 4-day history of right flank abdominal and lumbar pain. He denies any nausea, vomiting or diarrhea. His appetite is fair. He denies any weight loss. He does have complaint on inspiration with cough, with some yellow sputum, but denies any fever, chills, night sweats or shortness of air. The patient has a history in 07/2015 having a positive quantiferon for TB, despite a bronchoscopy with biopsies that were negative, with a small cavitary lesion in the right lower lobe. The patient states he did take some medicine, but he failed to follow up with the health department or complete treatment. He does not remember what type of medicine he took or for how long. He is a poor historian. On admit to [facility] on 09/07/[address] of the abdomen and pelvis which revealed a 6.2 x 4.2 cm thick-walled cavitary lesion in the right lower lobe with associated small right pleural effusion. When this CAT scan of the abdomen and pelvis was compared to a CT of the chest in 07/2015 the lesion had very little change, with the exception that the wall is thicker and there is a small right pleural effusion. A CT of the chest revealed the same findings. Dr. Candelario spoke with Dr. Johnson regarding the patient and he will continue on antibiotic therapy and then will be reevaluated by CAT scan in approximately one week. PAST MEDICAL HISTORY 1. Coronary artery disease. The patient states he underwent a cardiac catheterization in 07/2016 under the direction of [facility]. However, I do not see that in our computer. 2. Hypertension. 3. Diabetes. 4. Tuberculosis. 5. Diabetic neuropathy. 6. He is a previous smoker and he is noted to be noncompliant with treatment. PAST SURGICAL HISTORY He has had multiple cardiac catheterizations and he had a bronchoscopy under the direction of Dr. Johnson in 07/2015. SOCIAL HISTORY He lives with family. He is a nonsmoker. He quit smoking four years ago. He states that he drinks alcohol on a social basis only, but not on a Unit #: [id number] #: [id number] Patient: ALYSHA CHUNG JR regular daily basis. FAMILY HISTORY Positive for diabetes, hypertension and coronary artery disease. REVIEW OF SYSTEMS Positive or negative for symptoms mentioned in history of present illness. However, a 12-point review of the systems was noted to be otherwise benign. PHYSICAL EXAMINATION GENERAL: He is a well-groomed and well-nourished 46-year-old male who is a very poor historian regarding his own medical history and treatment. VITALS: Temperature 98.2, heart rate 61, respiratory rate 18, blood pressure 128/81. HEENT: He is normocephalic. No facial asymmetry. His sclerae are anicteric. NECK: Supple. Trachea midline. No thyromegaly. No palpable cervical, supraclavicular or occipital lymphadenopathy. LUNGS: Clear to auscultation bilaterally, however, diminished in the bases. HEART: S1 and S2, without rub, without murmur. No S3. No S4. No peripheral edema. ABDOMEN: Round and soft. Bowel sounds are positive. Nontender. No epigastric pain. No hepatosplenomegaly. No pulsatile mass. EXTREMITIES: Warm and dry. There is no clubbing, cyanosis or edema. No cutaneous lesions. MUSCULOSKELETAL: He moves his extremities well with equal strength and equal and steady gait. NEUROLOGIC: Cranial nerves II through XII are intact. His speech is appropriate and clear. He is congenial. DIAGNOSTIC STUDIES IMAGING: CT of the abdomen and pelvis and CT of the chest performed on 09/07/2016 are both discussed in the history of present illness paragraph. LABORATORY: BUN 21, creatinine 1.0, glucose 266, sodium 135, potassium 4.3, magnesium 1.8. Hematology, white blood cell count 10.5, hemoglobin 14.1, hematocrit 40.8, platelets 174. ASSESSMENT 1. Right lower lobe cavitary lesion with leukocytosis at 15,000, with a history of TB with noncompliance with medications or treatments by the health department. This lesion could be an opportunistic organism, such as Aspergillus or fungal organism or it could be continued infective tuberculosis. The patient remains in isolation, which is preventive. 2. Coronary artery disease with last cardiac catheterization in [address] Faust. 3. Diabetes. 4. Peripheral neuropathy. 5. History of noncompliance with medical treatment. PLAN Dr. Candelario spoke with Dr. Johnson, agreement with antibiotic therapy, either inpatient or outpatient. The patient is to have a repeat CT scan of the chest in about six days. Will reevaluate the patient at that time. At present no surgical intervention is planned. Unit #: [id number] #: [id number] Patient: ALYSHA CHUNG JR Dictated by... Ping Baker A.P.R.N. for Alvin Candelario M.D. TB/gz TD: 09/08/2016 14:33 JOB #: [id number] CONSULTATION REPORT Page 1 of 1 X Ping Baker APRN X CONSULTATION REPORT
--- NOTE | ~2016-09-07 | CT4 ---
[facility] A Service of [facility] & [facility] RADIOLOGY TEXT RESULTS PATIENT: ALYSHA JONES JR LOCATION: [facility] : [birth year] UNIT #: [id number] AGE: [address]: Angeles Jacobs MD SEX: M ORDER DR: [id number] [facility] [address] [place], [place] [address] [id number] E MR#: [id number] Acc #: [id number] NAME: ALYSHA JONES : 1970 SEX: M STUDY DATE/TIME: 09/07/2016 12:43 UNIT: [facility] ROOM: STUDY DESCRIPTION: CT Abd and Pelv Wo Cont Attending Physician: Angeles Jacobs M.D. Ordering Physician: Angeles Jacobs M.D. Primary Care Physician: Primary Care Physician No MEDICAL IMAGING REPORT This report is preliminary unless electronic signature is present EXAM CT abdomen and pelvis without contrast 09/07/2016 1243 hours HISTORY Right flank pain for 3 days. No history of kidney stones. COMPARISON CT abdomen and pelvis 07/27/2015. TECHNIQUE Helical noncontrasted images were obtained from the lung bases through the pubic symphysis. Sagittal and coronal reconstructions were performed. Total exam DLP 746 mGy-cm. This CT examination was performed with one or more of the following radiation dose reduction techniques: automatic exposure control, adjustment of mA and/or kV according to patient size, and iterative reconstruction. FINDINGS Images through the lung bases demonstrate a normal appearance to the distal esophagus. The left lung base is clear. In the right lower lobe, there is a somewhat thick-walled cavitary lesion measuring 6.2 x 4.2 cm incompletely imaged on this CT abdomen. There is posterior pleural fluid and/or reactive pleural thickening associated with this. This is surprisingly difficult to visualize on portable chest today or on 07/06/2016. A lesion similar in size and location was seen on CT chest and abdomen study 07/27/2015 measuring 6.3 x 3.8 cm currently measuring 6.2 x 4.2 cm. The posterior reactive pleural thickening or pleural fluid has increased. It is not clear whether this represents infectious or inflammatory cavity whether this has resolved in the interval since 07/27/2015 or this is the same cavitary lesion. If it is the same lesion then malignancy would be unlikely given its relative stability. [facility] A Service of [facility] & [facility] RADIOLOGY TEXT RESULTS PATIENT: ALYSHA JONES JR LOCATION: [facility] : [birth year] UNIT #: [id number] AGE: [address]: Angeles Jacobs MD SEX: M ORDER DR: Noncontrasted images through the abdomen demonstrate a normal appearance to the liver, spleen, pancreas, gallbladder and bile ducts. The adrenal glands are normal. The kidneys demonstrate no mass, stone or obstruction. There is no ureterectasis. The bladder is normal. Bilateral lower pelvic phleboliths are present. Stomach and small bowel appear normal. Terminal ileum and appendix are normal. There is no colonic wall thickening. CT pelvis demonstrates a normal appearance to the bladder, seminal vesicles and prostate. No significant hernias are seen. There is mild degenerative change in the lower thoracic spine and upper lumbar spine. There is no fracture or bone lesion seen. IMPRESSION 1. There are no acute findings in the abdomen or pelvis. No renal or ureteral calculi. The appendix is normal. 2. There is a thick-walled cavitary lesion in the right lower lobe of the lung with posterior pleural thickening or pleural fluid. This is 6.2 x 4.2 cm in size, previously 6.3 x 3.8 cm in size on 07/27/2015. It is not clear whether this area has resolved and represents a recurrent abscess or whether this could represent a mass. An atypical infection is possible. This area is not imaged in its entirety on this exam. It is surprisingly inconspicuous on portable chest films. 3. The left lung base is clear. 4. Correlate with treatment following the CT studies of 07/27/2015. Presence of infection, atypical infection or malignancy could give this appearance. STAT * RESULT Dictated by... Anitha Sousa M.D. THIS IS AN ELECTRONICALLY VERIFIED REPORT Anitha Sousa M.D. at 09/07/2016 2:31 PM AUSTIN/sierra TD: 09/07/2016 13:35 JOB #: [id number] MEDICAL IMAGING REPORT Page 1 of 1 COPY
--- NOTE | ~2016-09-07 | CR72 ---
[facility] A Service of [facility] & [facility] RADIOLOGY TEXT RESULTS PATIENT: ALYSHA JONES JR LOCATION: [facility] : 74 UNIT #: [id number] AGE: [address]: Angeles Jacobs MD SEX: M ORDER DR: [id number] [facility] [address] [place], [place] [address] [id number] E MR#: [id number] Acc #: [id number] NAME: ALYSHA JONES : 1970 SEX: M STUDY DATE/TIME: 09/07/2016 12:02 UNIT: [facility] ROOM: STUDY DESCRIPTION: CR Chest Single View Portable Attending Physician: Angeles Jacobs M.D. Ordering Physician: Angeles Jacobs M.D. Primary Care Physician: Primary Care Physician No MEDICAL IMAGING REPORT This report is preliminary unless electronic signature is present EXAM Portable chest HISTORY Pain right side of the abdomen and chest. 3 days. Coronary artery disease, diabetes. FINDINGS AP radiograph of the chest is presented. Comparison to chest radiograph 07/08/[address] abdomen and pelvis 09/07/2016. The heart is normal in size. The lungs well inflated. The left lung appears clear. Ill-defined density in the right infrahilar region. Not clearly seen on chest radiograph from 07/06/2016. Likely corresponding to cavitary abnormality seen at right lung base on today's CT abdomen and pelvis. The finding on CT abdomen and pelvis is incompletely visualized. It is similar in gross appearance to cavitary abnormality seen on the chest CT 07/27/2015. I would favor infectious or inflammatory etiology. Consider recurrent cavitary pneumonia, fungal disease or mycobacterial disease. Cavitary neoplasm would seem unlikely given time course. Please correlate with any prior histologic assessment of this abnormality. Consider full CT of the chest for complete characterization. The remainder of the right lung is clear. No pleural effusion or pneumothorax is seen. Bony structures unremarkable. Dictated by... Jose Reynolds M.D. THIS IS AN ELECTRONICALLY VERIFIED REPORT Jose Reynolds M.D. at 09/07/2016 6:31 PM MARY/sherrie TD: 09/07/2016 14:57 JOB #: [id number] [facility] A Service of [facility] RADIOLOGY TEXT RESULTS PATIENT: ALYSHA JONES JR LOCATION: [facility] : 74 UNIT #: [id number] AGE: [address]: Angeles Jacobs MD SEX: M ORDER DR: MEDICAL IMAGING REPORT Page 1 of 1 COPY
--- NOTE | ~2016-09-07 | OR ---
Unit #: [id number] #: [id number] Patient: ALYSHA JONES JR [id number] [address] [address] [id number] I MR#: [id number] NAME: ALYSHA JONES JR ROOM: 242 Date of Procedure: 09/12/2016 Admission Date: 09/07/2016 Surgeon: Sandeep Johnson M.D. : 1970 Attending Physician: Laurel Acevedo M.D. OPERATIVE REPORT PROCEDURE PERFORMED Flexible fiberoptic bronchoscopy. INDICATION FOR PROCEDURE Abnormal CAT scan with cavitary lesion. FINDINGS No endobronchial lesion seen. SEDATION MAC. COMPLICATION Zero. DESCRIPTION OF PROCEDURE The patient was brought to the endoscopy suite and monitored for heart rate, blood pressure, saturations, and end-tidal CO2. Sedated with MAC. Anesthetized with 2% lidocaine in both nares. Viscous lidocaine was applied to his right naris. Bronchoscope was introduced without difficulty. Vocal cords were visualized. There were normal configuration and motion, anesthetized x2. Main trachea was intubated. Main airways were anesthetized. All subsegments were identified. Basically normal bronchial exam. BAL was performed. Superior segment right lower lobe in standard fashion. A 60 mL aliquots were instilled x2 with reasonable return given the location. It appeared that some mucus was emanating from the superior segment prior to BAL. Some of the BAL fluid was recovered with bronchial washings. The bronchoscope was removed without difficulty, and the patient was in stable condition en route to the recovery room. Dictated by... Sandeep Johnson M.D. MIGUEL/alfredo TD: 09/13/2016 00:06 JOB #: [id number] Unit #: [id number] #: [id number] Patient: ALYSHA JONES JR OPERATIVE REPORT Page 1 of 1 X Sandeep Johnson MD X PROCEDURE OPERATIVE NOTE
--- NOTE | ~2016-09-07 | CT57 ---
[facility] A Service of [facility] RADIOLOGY TEXT RESULTS PATIENT: ALYSHA JONES JR LOCATION: [facility] 315-01 : [birth year] UNIT #: [id number] AGE: [address]: Laurel Acevedo MD SEX: M ORDER DR: [id number] [place] [id number] [facility] [place] [facility]. [place], [place] [address] [id number] I MR#: [id number] Acc #: [id number] NAME: ALYSHA JONES JR : 1970 SEX: M STUDY DATE/TIME: 09/07/2016 20:28 UNIT: A U ROOM: 315 STUDY DESCRIPTION: CT Chest Wo Cont Attending Physician: Laurel Acevedo M.D. Ordering Physician: Laurel Acevedo M.D. Primary Care Physician: No Primary Care Physician MEDICAL IMAGING REPORT This report is preliminary unless electronic signature is present EXAM CT chest. INDICATIONS Right-sided chest and abdominal pain. Flank pain for 3 days. Shortness of air. TECHNIQUE CT of the chest without contrast. Coronal and sagittal reconstructions were obtained. This CT exam was performed with one or more of the following radiation dose reduction techniques: automatic exposure control, adjustment of mA and/or kV according to patient size, and iterative reconstruction. COMPARISON Concurrent CT abdomen and pelvis 09/07/2016, and chest CT 07/27/2015. FINDINGS The cavitary mass in the right lower lobe has increased in size. The wall thickness of the cavitary lesion has increased to at least 1 cm in thickness compared to 0.4 cm previously. The mass measures up to 6.8 cm in size. There is increasing consolidation adjacent to the mass. There is development of a small right pleural effusion. Left lung is clear. No pathologically enlarged mediastinal or hilar lymph nodes. Please refer to a separately dictated report for details on the abdomen. IMPRESSION 1. Increased size of the cavitary mass in the right lower lobe. There is also an increase in associated consolidation adjacent the cavitary lesion. Given the patient's age, I suspect this probably represents a pulmonary abscess, however, confirmation with clinical presentation [facility] A Service of [facility] & [facility] RADIOLOGY TEXT RESULTS PATIENT: ALYSHA JONES JR LOCATION: [facility] 315-01 : [birth year] UNIT #: [id number] AGE: [address]: Laurel Acevedo MD SEX: M ORDER DR: is requested. Continued followup is recommended. 2. Development of a small right pleural effusion. Dictated by... Agus Bhakta M.D. THIS IS AN ELECTRONICALLY VERIFIED REPORT Agus Bhakta M.D. at 09/08/2016 3:11 PM HIEN/pawan TD: 09/07/2016 22:22 JOB #: [id number] MEDICAL IMAGING REPORT Page 1 of 1 COPY
--- NOTE | ~2016-09-07 | DS ---
Unit #: [id number] #: [id number] Patient: ALYSHA JONES JR [id number] [address] [address] [id number] MR#: [id number] NAME: ALYSHA JONES JR ROOM: 242 Age: 46 Sex: M Admission Date: 09/07/2016 : 1970 Discharge Date: 09/13/2016 Attending Physician: Laurel Acevedo M.D. Primary Care Physician: No Primary Care Physician DISCHARGE SUMMARY ADDENDUM Please note - medication costs have been checked in [facility] and they are affordable per patient. DISCHARGE MEDICATIONS 1. Zyvox 600 mg p.o. b.i.d. for 28 days. 2. Flagyl 500 mg p.o. t.i.d. for 28 days. 3. Levaquin 750 mg p.o. daily for 28 days. 4. Humulin R 5 units subcu t.i.d. 30 minutes before meals. 5. Levemir 30 units subcutaneously at bedtime. 6. Zocor 40 mg daily. 7. Metformin 750 mg b.i.d. Please note - two refills of all insulin given. DISCHARGE INSTRUCTIONS The patient was instructed to follow a heart healthy constant carb diet. The patient has received diabetic education. FOLLOWUP The patient will follow up with Dr. Johnson's nurse practitioner in approximately two weeks and CT scan of the chest should be arranged at that time for approximately 6-8 weeks following discharge. The patient should follow up with Dr. Johnson in 6-8 weeks. As noted above, he does need a CBC and BMP done every two weeks while on antibiotics and prescription was written. He has also been released from work until September 18, 2016. Dictated by... Laurel Acevedo M.D. DEANNE/ike TD: 09/14/2016 09:29 JOB #: [id number] Unit #: [id number] #: [id number] Patient: ALYSHA JONES JR DISCHARGE SUMMARY Page 1 of 1 X Laurel Acevedo MD X DISCHARGE SUMMARY
[~2016-09-07 11:13] MED LIST changes: +BAYER CHEWABLE81 MG PO; +LISINOPRIL10 MG PO; +METFORMIN HCL750 MG PO; +NOVOLOG7030 SUBQ; +SIMVASTATIN40 MG PO
[2016-09-07 12:06] LABS: URINE SOURCE CLEAN CATCH
[2016-09-07 12:15] LABS: BASOPHIL% 0.3 % (0-2.5); EOSINOPHIL# 0.1 X10e3 (0-0.7); EOSINOPHIL% 0.7 % (0.0-7.0); HEMATOCRIT 46.3 % (38.0-50.0); HEMOGLOBIN 15.4 gm/dL (13.0-16.0); LYMPHOCYTE% 13.3 % (17.0-45.0); MEAN CELL VOLUME 85.1 FL (83-96); MEAN CORPUSCULAR HEMOGLOBIN 28.2 PG (28-34); MEAN CORPUSCULAR HGB CONC 33.1 g/dL (30-36); MONOCYTE# 1.1 X10e3 (0-1.0); MONOCYTE% 7.3 % (3.0-12.0); NEUTROPHIL# 11.7 X10e3 (1.5-7.1); NEUTROPHIL% 78.4 % (40-75); PLATELET COUNT 193 X10e3 (140-420); RED BLOOD COUNT 5.45 X10e (3.90-5.60)
[2016-09-07 12:16] LABS: DIFF IND NO
[2016-09-07 12:20] LABS: URINE APPEARANCE CLEAR; URINE BILIRUBIN NEG (NEG); URINE BLOOD NEG (NEG); URINE COLOR YELLOW; URINE GLUCOSE >1000 MG/DL (NEG); URINE KETONE TRACE (NEG); URINE LEUKOCYTE ESTERASE NEG (NEG); URINE NITRATE NEG (NEG); URINE PROTEIN NEG (NEG); URINE UROBILINOGEN 0.2 MG/DL (NEG)
[2016-09-07 12:39] LABS: CULTURE INDICATED? NO; URINE SPECIFIC GRAVITY 1.037 (1.003-1.035)
[2016-09-07 12:42] LABS: ALBUMIN SERUM 3.5 g/dL (3.5-5.0); BILIRUBIN, DIRECT 0.2 mg/dL (0.0-0.2); BILIRUBIN,INDIRECT 0.9 mg/dL (0.0-0.9); BILIRUBIN,TOTAL 1.1 mg/dL (0.2-2.0); CALCIUM SERUM 8.6 mg/dL (8.4-10.2); GLOM FILT RATE Estimated 91.1 mL/min (>60); POTASSIUM 4.1 mmol/L (3.5-5.1)
[2016-09-07] MEDS ORDERED: METFORMIN PO (17:22)
[2016-09-07] MEDS ORDERED: ZOCOR PO (17:22)
[2016-09-07] MEDS ORDERED: PATIENT'S PHARMACY (17:22)
[2016-09-07] MEDS ORDERED: LISINOPRIL PO (17:22)
[2016-09-08 08:11] LABS: HEMATOCRIT 40.8 % (38.0-50.0); HEMOGLOBIN 14.1 gm/dL (13.0-16.0); MEAN CELL VOLUME 84.5 FL (83-96); MEAN CORPUSCULAR HEMOGLOBIN 29.2 PG (28-34); MEAN CORPUSCULAR HGB CONC 34.5 g/dL (30-36); MEAN PLATELET VOLUME 9.1 FL (6.5-11.5); RED BLOOD COUNT 4.82 X10e (3.90-5.60); RED CELL DISTRIBUTION WIDTH 13.4 % (11.0-15.5); WHITE BLOOD COUNT 10.5 X10e3 (4.0-10.5)
[2016-09-08 08:59] LABS: CALCIUM SERUM 8.1 mg/dL (8.4-10.2); GLOM FILT RATE Estimated 91.1 mL/min (>60); POTASSIUM 4.3 mmol/L (3.5-5.1)
[2016-09-09 06:47] LABS: CALCIUM SERUM 8.4 mg/dL (8.4-10.2); GLOM FILT RATE Estimated 91.1 mL/min (>60); MAGNESIUM 1.7 mg/dL (1.6-3.0)
[2016-09-09 10:08] LABS: CRYPTO AG CSF/SERUM NEG (NEG); CRYPTO AG SOURCE SERUM
[2016-09-10 00:06] LABS: NIL 0.06 IU/mL (()); QUANTIFERON POSITIVE (Negative)
[2016-09-10 06:21] LABS: HEMATOCRIT 42.1 % (38.0-50.0); HEMOGLOBIN 14.3 gm/dL (13.0-16.0); MEAN CELL VOLUME 84.8 FL (83-96); MEAN CORPUSCULAR HEMOGLOBIN 28.9 PG (28-34); MEAN CORPUSCULAR HGB CONC 34.1 g/dL (30-36); MEAN PLATELET VOLUME 9.8 FL (6.5-11.5); RED BLOOD COUNT 4.96 X10e (3.90-5.60); RED CELL DISTRIBUTION WIDTH 13.3 % (11.0-15.5); WHITE BLOOD COUNT 9.2 X10e3 (4.0-10.5)
[2016-09-10 07:31] LABS: CALCIUM SERUM 8.3 mg/dL (8.4-10.2); GLOM FILT RATE Estimated 91.1 mL/min (>60); MAGNESIUM 1.7 mg/dL (1.6-3.0); POTASSIUM 4.2 mmol/L (3.5-5.1)
[2016-09-11 06:49] LABS: BILIRUBIN,TOTAL 0.5 mg/dL (0.2-2.0); CALCIUM SERUM 8.4 mg/dL (8.4-10.2); GLOM FILT RATE Estimated 91.1 mL/min (>60); POTASSIUM 4.4 mmol/L (3.5-5.1)
[2016-09-12 04:11] LABS: HEMATOCRIT 38.3 % (38.0-50.0); HEMOGLOBIN 13.2 gm/dL (13.0-16.0); MEAN CELL VOLUME 84.9 FL (83-96); MEAN CORPUSCULAR HEMOGLOBIN 29.2 PG (28-34); MEAN CORPUSCULAR HGB CONC 34.4 g/dL (30-36); MEAN PLATELET VOLUME 8.7 FL (6.5-11.5); RED BLOOD COUNT 4.51 X10e (3.90-5.60); RED CELL DISTRIBUTION WIDTH 13.2 % (11.0-15.5); WHITE BLOOD COUNT 8.6 X10e3 (4.0-10.5)
[2016-09-12 15:43] LABS: BF TOTAL NUCLEATED CELL COUNT 226 CMM (0-100); BODY FLUID APPEARANCE CLOUDY; BODY FLUID RBC <10000 CMM; BODY FLUID SOURCE BRONCHIAL LAVAGE
[2016-09-12 21:48] LABS: HISTO AG URINE SPECIMEN Urine (())
[2016-09-13 08:23] LABS: ALBUMIN SERUM 3.1 g/dL (3.5-5.0); BILIRUBIN,TOTAL 0.8 mg/dL (0.2-2.0); BUN/CREATININE RATIO 14.44; CALCIUM SERUM 8.5 mg/dL (8.4-10.2); CREATININE SERUM 0.9 mg/dL (0.6-1.4); GLOM FILT RATE Estimated 103.5 mL/min (>60); POTASSIUM 4.5 mmol/L (3.5-5.1); PROTEIN TOTAL SERUM 6.2 g/dL (6.0-8.3)
[2016-09-13] MEDS ORDERED: FLAGYL PO (10:18)
[2016-09-13] MEDS ORDERED: ZYVOX600 MG PO (10:19)
[2016-09-13] MEDS ORDERED: LEVEMIR100 UNITS/ SUBQ (10:19)
[2016-09-13] MEDS ORDERED: NOVOLOG FL100 UNIT/1 SUBQ (10:20)
[2016-09-13] MEDS ORDERED: LEVAQUIN750 MG PO (10:20)
[2016-09-13] MEDS ORDERED: HUMULIN R500 UNIT/1 SUBQ (12:57)
[2016-09-13 19:24] LABS: MYELOPEROXIDASE AB (PNL) <1.0 AI (<1.0); PROTEINASE-3 AB (PNL) <1.0 AI (<1.0)
[2016-09-14 16:24] LABS: ASPERGILLUS FLAVUS Negative (Negative); ASPERGILLUS FUMIGATUS Negative (Negative); ASPERGILLUS NIGER Negative (Negative); BLASTOMYCES ANTIBODY Negative (Negative); COCCIDIODES ANTIBODY Negative (Negative); CRYPTOCOCCAL AB <1:2 (()); CRYPTOCOCCAL AG SCREEN SOURCE Serum (()); CRYPTOCOCCAL SCREEN Not Detected (Not Detected); HISTOPLASMA AB Negative (Negative)
== END 2016-09-13 13:23 | disposition home or self-care (01) | DRG 167 ==
LOC: CED 11:13 → C3A PCU 17:50 → CEDOF 17:50 → CED 18:01 → C3A PCU 18:01 → CEDOF 22:20 → C2A 09-12 12:20
PROVIDERS: Emergency Medicine; Internal Medicine; Internal Medicine Infectious Disease; Nurse Practitioner
PROC: 0B9F8ZX Drainage of Right Lower Lung Lobe, Via Natural or Artificial Opening Endoscopic, Diagnostic (ICD-10-PCS; principal; 2016-09-12 14:30)
DX: J85.2 Abscess of lung without pneumonia (principal); E44.1 Mild protein-calorie malnutrition; E11.42 Type 2 diabetes mellitus with diabetic polyneuropathy; R10.9 Unspecified abdominal pain; M79.1 Myalgia; E11.65 Type 2 diabetes mellitus with hyperglycemia; Z79.84 Long term (current) use of oral hypoglycemic drugs; I25.10 Atherosclerotic heart disease of native coronary artery without angina pectoris; I10 Essential (primary) hypertension; E78.5 Hyperlipidemia, unspecified; Z68.24 Body mass index [BMI] 24.0-24.9, adult; R74.0 Nonspecific elevation of levels of transaminase and lactic acid dehydrogenase [LDH]; E66.9 Obesity, unspecified; K00.7 Teething syndrome; Z88.5 Allergy status to narcotic agent; Z87.891 Personal history of nicotine dependence; Z83.3 Family history of diabetes mellitus; Z82.49 Family history of ischemic heart disease and other diseases of the circulatory system; Z86.11 Personal history of tuberculosis
CPT/HCPCS: 36415; 71010; 71250; 71260; 74176; 80048; 80053; 80076; 81003; 82947; 83690; 83735; 83880; 84311; 85025; 85027; 86021; 86480; 86606; 86612; 86631; 86698; 87040; 87070; 87102; 87106; 87116; 87205; 87206; 87305; 87385; 87449; 87806; 87899; 88108; 88305; 88312; 89051; 94760; 96361; 96374; 96375; 99285; J0171; J1650; J1815; J1885; J1956; J2185; J2250; J2270; J2405; J2543; J3370; Q9967